=== PATIENT | female | born 1980 | race Two or more races ===

== ENCOUNTER → 2016-05-27 | Outpatient (CLI) | payer BC | LOC: RAD 12:30 | PROVIDERS: ATTEND Internal Medicine Gastroenterology | DX: R10.11 Right upper quadrant pain (principal); K80.80 Other cholelithiasis without obstruction | CPT/HCPCS: 76700 ==

== ENCOUNTER 2016-10-31 10:03 | Observation (INO) | payer BC ==
--- NOTE | 2016-10-31 10:16 | ER Document Report ---
ED Medical Screen (RME) - General Chief Complaint: Vaginal Bleeding Stated Complaint: VAGINAL BLEEDING Time Seen by Provider: 10/31/16 10:11 Mode of Arrival: Ambulatory Information source: Patient TRAVEL OUTSIDE OF THE [place] IN LAST 30 DAYS: No - HPI Onset: Yesterday - MID-DAY Onset/Duration: Gradual Quality of pain: Cramping Severity: Mild Associated Symptoms: denies: Dizzy/lightheaded, Shortness of breath, Weakness Exacerbated by: Denies Relieved by: Denies Similar symptoms previously: No Recently seen / treated by doctor: Yes - ROUTINE - Related Data Smoking: Non-smoker Frequency of alcohol use: None Drug Abuse: None Allergies/Adverse Reactions: Penicillins Allergy (Intermediate, Verified 10/31/16 10:07) Itching Past Medical History - General Information source: Patient - Social History Cigarette use (# per day): No Chew tobacco use (# tins/day): No Frequency of alcohol use: None Drug Abuse: None Lives with: Spouse/Significant other Renal/ Medical History: Denies: Hx Peritoneal Dialysis Review of Systems - Review of Systems Constitutional: No symptoms reported EENT: No symptoms reported Cardiovascular: No symptoms reported Female Genitourinary: See HPI Physical Exam - Vital signs Vitals: Temp Pulse Resp BP Pulse Ox 98.6 F 88 16 124/71 100 10/31/16 10:07 10/31/16 10:07 10/31/16 10:07 10/31/16 10:07 10/31/16 10:07 Interpretation: Tachycardic. No: Hypotensive - Respiratory Respiratory status: No respiratory distress Course - Vital Signs Vital signs: Temp Pulse Resp BP Pulse Ox 98.6 F 88 16 124/71 100 10/31/16 10:07 10/31/16 10:07 10/31/16 10:07 10/31/16 10:07 10/31/16 10:07
[2016-10-31 10:47] LABS: ABSOLUTE BASOPHILS # (AUTO) 0.1 10^3/uL (0.0-0.2); ABSOLUTE EOSINOPHILS # (AUTO) 0.1 10^3/uL (0.0-0.6); ABSOLUTE LYMPHOCYTES (AUTO) 1.5 10^3/uL (0.5-4.7); ABSOLUTE MONOCYTES (AUTO) 0.4 10^3/uL (0.1-1.4); ABSOLUTE NEUT (AUTO) 7.5 10^3/uL (1.7-8.2); BASOPHILS % (AUTO) 0.5 % (0-2); EOSINOPHILS % (AUTO) 0.8 % (0-6); HEMATOCRIT 38.2 % (36.0-47.0); HGB HCT DIFFERENCE -2.2; LYMPHOCYTES % (AUTO) 15.4 % (13-45); MEAN CORPUSCULAR HEMOGLOBIN 25.7 pg (27.0-33.4); MEAN CORPUSCULAR HGB CONC 31.5 g/dL (32.0-36.0); MEAN CORPUSCULAR VOLUME 81 fl (80-97); MONOCYTES % (AUTO) 4.6 % (3-13); RED BLOOD COUNT 4.69 10^6/uL (3.72-5.28); RED CELL DISTRIBUTION WIDTH 15.1 % (11.5-14.0); SEGMENTED NEUTROPHILS % (AUTO) 78.7 % (42-78); WHITE BLOOD COUNT 9.5 10^3/uL (4.0-10.5)
--- NOTE | 2016-10-31 10:55 | ER Document Report ---
ED GI/ - General Chief Complaint: Vaginal Bleeding Stated Complaint: VAGINAL BLEEDING Time Seen by Provider: 10/31/16 10:11 Mode of Arrival: Ambulatory Notes: The pt is a 36 yo female, 10 weeks by prior ultrasound, presents with vaginal bleeding for the past day. She noticed spotting yesterday that has now increased in frequency. She passed a sac with a possible fetus in it earlier today. She denies lightheadedness, urinary symptoms, chest pain, shortness of breath, flank pain or syncope. TRAVEL OUTSIDE OF THE [place] IN LAST 30 DAYS: No - Related Data Allergies/Adverse Reactions: Penicillins Allergy (Intermediate, Verified 10/31/16 10:07) Itching Past Medical History - General Information source: Patient - Social History Smoking Status: Never Smoker Cigarette use (# per day): No Chew tobacco use (# tins/day): No Frequency of alcohol use: None Drug Abuse: None Lives with: Spouse/Significant other Family History: Reviewed & Not Pertinent Patient has suicidal ideation: No Patient has homicidal ideation: No Renal/ Medical History: Denies: Hx Peritoneal Dialysis Review of Systems - Review of Systems Notes: REVIEW OF SYSTEMS: CONSTITUTIONAL: -fevers, -chills EENT: -eye pain, -difficulty swallowing, -nasal congestion CARDIOVASCULAR:-chest pain, -syncope. RESPIRATORY: -cough, -SOB GASTROINTESTINAL: -abdominal pain, - nausea, -vomiting, -diarrhea GENITOURINARY: -dysuria, -hematuria, +vaginal bleeding MUSCULOSKELETAL: -back pain, -neck pain SKIN: -rash or skin lesions. HEMATOLOGIC: -easy bruising or bleeding. LYMPHATIC: -swollen, enlarged glands. NEUROLOGICAL: -altered mental status or loss of consciousness, -headache, - neurologic symptoms PSYCHIATRIC: -anxiety, -depression. ALL OTHER SYSTEMS REVIEWED AND NEGATIVE. Physical Exam - Vital signs Vitals: Temp Pulse Resp BP Pulse Ox 98.6 F 88 16 124/71 100 10/31/16 10:10/31/16 10:10/31/16 10:10/31/16 10:10/31/16 10:07 - Notes Notes: PHYSICAL EXAMINATION: GENERAL: Well-appearing, well-nourished and in no acute distress. HEAD: Atraumatic, normocephalic. EYES: Pupils equal round and reactive to light, extraocular movements intact, sclera anicteric, conjunctiva are normal. ENT: nares patent, oropharynx clear without exudates. Moist mucous membranes. NECK: Normal range of motion, supple without lymphadenopathy LUNGS: Breath sounds clear to auscultation bilaterally and equal. No wheezes rales or rhonchi. HEART: Regular rate and rhythm without murmurs ABDOMEN: Soft, nontender, normoactive bowel sounds. No guarding, no rebound. No masses appreciated. : Open cervix with slow bleeding and clots from cervix. EXTREMITIES: Normal range of motion, no pitting or edema. No cyanosis. NEUROLOGICAL: Cranial nerves grossly intact. Normal speech, normal gait. Normal sensory and motor exams. PSYCH: Normal mood, normal affect. SKIN: Warm, Dry, normal turgor, no rashes or lesions noted. Course - Re-evaluation Re-evalutation: Patient is hemodynamically stable at this time. Her blood type is A+. Pt is actively miscarrying while in the ED. Her vital signs are stable and her hemoglobin is normal. Provided pain medicine and follow-up at OB tomorrow. Given strict return precautions and she understands. - Vital Signs Vital signs: Temp Pulse Resp BP Pulse Ox 98.2 F 82 18 119/70 99 10/31/16 12:06 10/31/16 12:06 10/31/16 12:06 10/31/16 12:06 10/31/16 12:06 - Laboratory Result Diagrams: 10/31/16 10:23 10/31/16 10:23 Laboratory results interpreted by me: 10/31/16 10/31/16 10:23 10:23 MCH 25.7 L MCHC 31.5 L RDW 15.1 H Seg Neutrophils % 78.7 H Potassium 5.1 H Chloride 111 H Beta HCG, Quant 9611.60 H - Diagnostic Test Radiology reviewed: Image reviewed, Reports reviewed Radiology results interpreted by me: Transvaginal US: NO VISUALIZED INTRA- OR EXTRAUTERINE . HETEROGENOUS ENDOMETRIUM. bHCG LEVEL TOO LOW TO EXPECT VISUALIZATION OF . ECTOPIC CANNOT BE EXCLUDED. FOLLOW-UP ULTRASOUND AND SERIAL BHCG LEVELS STRONGLY RECOMMENDED TO ACCURATELY ASSESS STATUS. Discharge - Discharge Clinical Impression: Miscarriage Condition: Stable Disposition: HOME, SELF-CARE Additional Instructions: Your ultrasound does not show evidence of the fetus. It is most likely because you miscarried today. Your beta-HCG level is 9611. You must follow-up with the OB this week for a repeat of your blood work and ultrasound. REPEAT BLOOD TEST: At this time, it is uncertain if you have a viable . During the first three months of , the hormone produced from the placenta will steadily rise, usually doubling in value every 2 - 3 days. In order to determine if your is viable and likely be succesful, a repeat of this blood test for the hormone is recommended in 2 - 3 days. An order for this test to be done as an outpatient is being provided. After you have this repeat test done, call your doctor or call us for the results. If the value of the test is increasing as would be expected in a normal , then your is likely to be ok. However, if the value of the test is declining, it will suggest something has happened with your and it will not likely be a successful . FOLLOW-UP CARE: If you have been referred to a physician for follow-up care, call the physician s office for an appointment as you were instructed or within the next two days. If you experience worsening or a significant change in your symptoms (very heavy bleeding with large clots of blood, passage of tissue, more severe abdominal / pelvic pain or cramping, feeling faint or severe weakness, fever, etc.), notify the physician immediately or return to the Emergency Department at any time for re-evaluation. OBSTETRIC-GYNECOLOGIC (OB-MOLD HOLDER) PHYSICIANS IN [place]: [facility] [address] [place], [place] [phone] [facility] [address] [place] [address] [phone] For active duty and dependents diagnosed with a threatened or miscarriage, you should follow up in the following manner: Standard patients who have a local civilian provider should follow up with that provider. Patients of the Family Practice Clinic should call your Team Nurse at 8: 00 am the following morning for further instructions. If you are neither a Standard patient nor a patient of the Family Practice Clinic, you should follow up at the [facility] ([facility]) . Patients already enrolled in the [facility], Prime patients not assigned to the Family Practice Clinic, and Active Duty patients not assigned to [facility] should report to the [facility] at 8:00 am the next morning that the [facility] is open and then you will be seen in the OB Clinic at 11:00 am. Prescriptions: Hydrocodone/Acetaminophen [[place] 5-325 mg Tablet] 1 tab PO Q6H PRN #10 tablet PRN Reason: Referrals: PEDRO PABLO SHEETS MD [ACTIVE STAFF] - Follow up as needed
[2016-10-31 11:07] LABS: ALANINE AMINOTRANSFERASE 22 U/L (9-52); ALKALINE PHOSPHATASE 53 U/L (38-126); ANION GAP 8 (5-19); ASPARTATE AMINO TRANSFERASE 16 U/L (14-36); BILIRUBIN,DIRECT 0.3 mg/dL (0.0-0.4); BILIRUBIN,TOTAL 0.6 mg/dL (0.2-1.3); BLOOD UREA NITROGEN 13 mg/dL (7-20); CALCIUM 9.8 mg/dL (8.4-10.2); CARBON DIOXIDE 22 mmol/L (22-30); CHLORIDE 111 mmol/L (98-107); CREATININE RESULT 0.69 mg/dL (0.52-1.25); GLUCOSE 106 mg/dL (75-110); POTASSIUM 5.1 mmol/L (3.6-5.0); SODIUM 140.8 mmol/L (137-145); TOTAL PROTEIN 7.2 g/dL (6.3-8.2)
--- NOTE | 2016-10-31 11:26 | RADIOLOGY REPORT (SQ) ---
EXAM DESCRIPTION: U/S OB TRANSVAG W/DOPPLER COMPLETED DATE/TIME: 10/31/2016 11:14 am REASON FOR STUDY: 10 WKS G2, BLEEDING COMPARISON: None. TECHNIQUE: Transvaginal static and realtime grayscale images acquired of the pelvis. Additional nino cted spectral and color Doppler images recorded. All images stored on PACs. BHCG: Pending. LIMITATIONS: None. FINDINGS: UTERUS: No visualized intrauterine . Heterogenous endometrium. RIGHT ADNEXA: Normal ovary with normal vascular flow. No adnexal free fluid. No adnexal masses. LEFT ADNEXA: Normal ovary with normal vascular flow. No adnexal free fluid. No adnexal masses. FREE FLUID: None. OTHER: No other significant finding. IMPRESSION: NO VISUALIZED INTRA- OR EXTRAUTERINE . HETEROGENOUS ENDOMETRIUM. bHCG LEVEL TOO LOW TO EXPECT VISUALIZATION OF . ECTOPIC CANNOT BE EXCLUDED. FOLLOW-UP ULTRASOUND AND SERIAL BHCG LEVELS STRONGLY RECOMMENDED TO ACCURATELY ASSESS STATU S. TECHNICAL DOCUMENTATION: JOB ID: [id number]- All Rights Reserved
[2016-10-31] MEDS ORDERED: NORMAL SALINE 1000 ML 1,000 ML IV ONE (12:38)
[2016-10-31 12:59] LABS: ABSOLUTE MONOCYTES (AUTO) 0.5 10^3/uL (0.1-1.4); BASOPHILS % (AUTO) 0.4 % (0-2); EOSINOPHILS % (AUTO) 0.1 % (0-6); HEMATOCRIT 34.3 % (36.0-47.0); HEMOGLOBIN 10.8 g/dL (12.0-15.5); HGB HCT DIFFERENCE -1.9; LYMPHOCYTES % (AUTO) 18.9 % (13-45); MEAN CORPUSCULAR HEMOGLOBIN 25.7 pg (27.0-33.4); MEAN CORPUSCULAR HGB CONC 31.5 g/dL (32.0-36.0); MEAN CORPUSCULAR VOLUME 81 fl (80-97); MONOCYTES % (AUTO) 4.5 % (3-13); RED BLOOD COUNT 4.21 10^6/uL (3.72-5.28); RED CELL DISTRIBUTION WIDTH 15.1 % (11.5-14.0); SEGMENTED NEUTROPHILS % (AUTO) 76.1 % (42-78); WHITE BLOOD COUNT 10.5 10^3/uL (4.0-10.5)
[2016-10-31] MEDS ORDERED: NORMAL SALINE 250 ML IV PRN (13:02)
[2016-10-31] MEDS ORDERED: OXYTOCIN/NORMAL SALINE 1,000 ML IV PRN ×2 (13:13)
[2016-10-31 14:40] VITALS: BP 104/68
--- NOTE | 2016-12-07 17:17 | DISCHARGE SUMMARY E ---
Discharge Summary NAME: HALEY SANCHES : 1980 AGE: 36Y ADMITTED: 10/31/2016 DISCHARGED: 10/31/2016 REASON FOR ADMISSION: A 36-year-old female with a completed . HISTORY AND PHYSICAL: See dictated history and physical from Dr. Clark for further details. HOSPITAL COURSE: The patient is taken upstairs by the emergency room staff who feels she needs to be admitted secondary to her miscarriage. Upon arrival to the floor, vital signs remained stable. She reports minimal bleeding and no pain. She is requesting to go home and therefore was discharged home. DISCHARGE INSTRUCTIONS: Discharged the patient to home. Diet is regular. Activity is pelvic rest x2. Follow-up interval is 1 to 2 weeks with [facility]. SPECIAL INSTRUCTIONS: The patient is instructed to call MD if temperature greater than 100.5 or heavy vaginal bleeding reoccurs. DICTATING PHYSICIAN: Farhat Clark DO [id number] PHY#: [id number] ID: [id number] JOB#: [id number] ACCT: [id number] cc:Farhat Clark D.O. >
--- NOTE | 2016-12-07 17:27 | HISTORY AND PHYSICAL E ---
History and Physical NAME: HALEY SANCHES : 1980 AGE: 36Y ADMITTED: 10/31/2016 ROOM: 228 CHIEF COMPLAINT: Vaginal bleeding. HISTORY OF PRESENT ILLNESS: This is a 36-year-old 3, para 2, 0-0-2 with an LMP of September 08, 2016. The patient presented to the emergency room for increasing vaginal bleeding. She was found to be in the process of miscarrying during her emergency room course. She ended up completing her miscarriage in the ER, and the ER physician wanted her admitted for observation. The patient's hemoglobin is 10.8. Upon arrival to the floor, the patient reports minimal vaginal bleeding, occasional cramping, and is desiring to go home. PAST MEDICAL HISTORY: Negative. PAST SURGICAL HISTORY: Negative. SOCIAL HISTORY: The patient denies recent alcohol, tobacco, or drugs. REVIEW OF SYSTEMS: Negative. FAMILY HISTORY: Noncontributory. VITAL SIGNS: The patient has a temperature of 98.2, pulse of 82, blood pressure 104/50, respirations 18. LABORATORY RESULTS: The patient has a hemoglobin of 10.8, hematocrit of 34.3, white count 10.5, platelets 250,000, and a BMP within normal limits. A quantitative hCG was 9611. PHYSICAL EXAMINATION: GENERAL: The patient is alert and oriented x3 in no acute distress. RESPIRATORY: Exam is bilaterally clear to auscultation. No wheezes, rales, or rhonchi are present. CARDIOVASCULAR SYSTEM: Regular rate and rhythm. ABDOMEN: Soft. Positive bowel sounds. Nontender. PELVIC: Exam is deferred per patient request. EXTREMITIES: Show no cyanosis, no clubbing, no edema. ASSESSMENT AND PLAN: A 36-year-old with a completed . The patient is hemodynamically stable and is requesting to go home. Therefore, she is discharged home and will follow up with the [facility] in 1 to 2 weeks. DICTATING PHYSICIAN: Farhat Clark DO [id number] PHY#: [id number] ID: [id number] JOB#: [id number] ACCT: [id number] cc:Farhat Clark D.O. >
== END 2016-10-31 14:50 | disposition home or self-care (01) ==
LOC: ER 10:03 → UNDOADMIN 13:15 → EH 13:15 → 2S 13:45 → EH 13:45 → 2S 14:07 → INTOOBSV 14:07 → UNDODISIN 14:50
PROVIDERS: ADMIT Obstetrics & Gynecology; ATTEND Obstetrics & Gynecology
DX: O03.89 Complete or unspecified spontaneous abortion with other complications (principal); I95.9 Hypotension, unspecified
CPT/HCPCS: 36415; 76817; 80053; 84702; 85025; 86850; 86900; 86901; 93976; 99285